=== PATIENT | female | born 1955 | race Caucasian/White ===

== ENCOUNTER 2023-09-14 10:55 | Outpatient (CLI) | payer MEDICARE | END 2023-09-14 10:56 | disposition home or self-care (01) | LOC: CSHULT 10:55 | PROVIDERS: ATTEND Internal Medicine Nephrology | DX: N18.30 Chronic kidney disease, stage 3 unspecified (principal) | CPT/HCPCS: 76770 ==

== ENCOUNTER 2024-10-08 08:41 | Outpatient (CLI) | payer MEDICARE | END 2024-10-08 08:42 | disposition home or self-care (01) | LOC: CSHSLEEP 08:41 | PROVIDERS: ATTEND Internal Medicine | DX: G47.33 Obstructive sleep apnea (adult) (pediatric) (principal); R09.89 Other specified symptoms and signs involving the circulatory and respiratory systems; R51.9 Headache, unspecified; R06.83 Snoring | CPT/HCPCS: 95811 ==